=== PATIENT | male | born 1950 | race American Indian/Alaskan Native ===

== ENCOUNTER 2018-04-13 12:57 | Outpatient (CLI) | payer OTHER | END 2018-04-13 15:38 | disposition home or self-care (01) | LOC: RAD 12:57 | DX: M79.641 Pain in right hand (principal) ==

== ENCOUNTER → 2018-10-06 | Outpatient (CLI) | payer OTHER | END | disposition home or self-care (01) | LOC: NUCLEAR 11:00 | DX: I67.89 Other cerebrovascular disease (principal); G62.9 Polyneuropathy, unspecified ==

== ENCOUNTER 2018-10-14 12:06 | Outpatient (CLI) | payer OTHER | END 2018-10-14 13:03 | disposition home or self-care (01) | LOC: NUCLEAR 12:06 | DX: G62.9 Polyneuropathy, unspecified (principal); I73.9 Peripheral vascular disease, unspecified ==

== ENCOUNTER → 2019-11-15 | Outpatient (CLI) | payer OTHER | END | disposition home or self-care (01) | LOC: MRI 09:27 | DX: G54.4 Lumbosacral root disorders, not elsewhere classified (principal); G54.1 Lumbosacral plexus disorders | CPT/HCPCS: 72148 ==

== ENCOUNTER 2022-02-04 13:10 | Outpatient (CLI) | payer OTHER | END 2022-02-04 13:20 | disposition home or self-care (01) | LOC: RAD 13:10 | PROVIDERS: ATTEND Radiology Diagnostic Radiology | DX: J20.9 Acute bronchitis, unspecified (principal) ==

== ENCOUNTER 2022-02-18 11:00 | Outpatient (CLI) | payer OTHER | END 2022-02-18 11:15 | disposition home or self-care (01) | LOC: MRI 11:00 | PROVIDERS: ATTEND Internal Medicine Pulmonary Disease | DX: Z87.891 Personal history of nicotine dependence (principal); J45.41 Moderate persistent asthma with (acute) exacerbation; U07.1 COVID-19; J15.7 Pneumonia due to Mycoplasma pneumoniae ==

== ENCOUNTER 2022-06-08 13:51 | Outpatient (CLI) | payer OTHER | END 2022-06-08 16:05 | disposition home or self-care (01) | LOC: RAD 13:51 | PROVIDERS: ATTEND Internal Medicine Cardiovascular Disease | DX: M25.579 Pain in unspecified ankle and joints of unspecified foot (principal) ==

== ENCOUNTER 2023-12-21 12:40 | Outpatient (CLI) | payer OTHER | END 2023-12-21 13:10 | disposition home or self-care (01) | LOC: RAD 12:40 | DX: R05.2 Subacute cough (principal) ==